=== PATIENT | female | born 1970 | race American Indian/Alaskan Native ===

== ENCOUNTER 2019-02-23 10:25 | Outpatient (CLI) | payer OTHER ==
--- NOTE | 2019-02-23 12:35 | Mammography Report ---
BILATERAL DIGITAL SCREENING MAMMOGRAM with CAD: 02/23/19 10:25:00 CLINICAL: Routine screening. COMPARISON:10/11/15 and 04/26/14 FINDINGS: The breasts are heterogeneously dense, which may obscure small masses. Right upper outer parenchymal asymmetries require additional imaging.No architectural distortion or suspicious calcifications.The left breast is negative. IMPRESSION: Right asymmetries requiring further workup. BI-RADS CATEGORY: 0 -- Additional Imaging Evaluation Required RECOMMENDATION: Recall for right mediolateral , spot compression exaggerated CC and MLO views and right breast ultrasound if needed. COMMENT: 1. Dense breast tissue, i.e., adenosis, fibrocystic changes, etc., may obscure an underlying neoplasm. 2. Approximately 10% of cancers are not detected with mammography. 3. A negative mammography report should not delay biopsy if a clinically suspicious mass is present. COMMENT: Patient follow-up letters are generated via our [employer] application.
== END 2019-02-23 10:26 | disposition home or self-care (01) ==
LOC: SPVWC 10:25
PROVIDERS: ATTEND Family Medicine
DX: Z12.31 Encounter for screening mammogram for malignant neoplasm of breast (principal)
CPT/HCPCS: 77067

== ENCOUNTER 2019-03-17 10:10 | Outpatient (CLI) | payer OTHER ==
--- NOTE | 2019-03-17 13:31 | Ultrasound Report ---
RIGHT DIGITAL DIAGNOSTIC MAMMOGRAM and RIGHT BREAST ULTRASOUND: 03/17/19 10:10:00 CLINICAL: Recalled for asymmetry. COMPARISON:02/23/19 screening FINDINGS: ML and spot compression MLO and CC views were obtained. Satisfactory effacement of asymmetry on the spot images. However, a partially circumscribed asymmetry persists in the upper breast on the lateral view. Ultrasound of the right breast (including all four quadrants and the retroareolar area) was performed and demonstrated a few scattered small benign cysts and mild duct ectasia. No solid mass or shadowing. IMPRESSION: Benign cysts and benign duct ectasia. No suspicious finding. BI-RADS CATEGORY: 2 - - Benign RECOMMENDATION: Routine mammographic screening in one year. COMMENT: 1. Dense breast tissue, i.e., adenosis, fibrocystic changes, etc., may obscure an underlying neoplasm. 2. Approximately 10% of cancers are not detected with mammography. 3. A negative mammography report should not delay biopsy if a clinically suspicious mass is present. COMMENT: Patient follow-up letters are generated via our [employer] application.
== END 2019-03-17 10:11 | disposition home or self-care (01) ==
LOC: SPVWC 10:10
PROVIDERS: ATTEND Family Medicine
DX: N60.41 Mammary duct ectasia of right breast (principal); N60.01 Solitary cyst of right breast